=== PATIENT | female | born 1995 | race Caucasian/White ===

== ENCOUNTER 2017-12-24 17:15 | Emergency (ER) | payer OTHER ==
[2017-12-24 17:31] VITALS: BMI 27.3
[2017-12-24 17:58] VITALS: BP 136/89; PULSE 60; TEMP 98.7
--- NOTE | 2017-12-24 19:14 | PDOC ---
History of Present Illness - History of Present Illness Initial Comments: 12/24/17 19:50 The patient is a 22 year old female, with no significant past medical history, who presents to the emergency department with left elbow/forearm pain s/p trip and fall. Patient states that she fell on her left side injuring her left elbow , shoulder, and knee. She came into today with a sling. She rates her current elbow pain 2-4/10. She denies hitting her head. She denies LOC. She denies recent fevers, chills, headache or dizziness. She denies recent nausea, vomit, diarrhea or constipation. She denies recent dysuria, frequency, urgency or hematuria. She denies recent chest pain or shortness of breath. Allergies: NKA Past surgical history: None reported. Social history: Current everyday smoker. Denies EtOH use and recreational drug use. ROS General: No fevers or chills, no weakness, no weight loss HEENT: No change in vision. No sore throat, No ear pain Cardiovascular: No chest pain or shortness of breath Respiratory:No cough, or wheezing. Gastrointestinal: No nausea, vomiting, diarrhea or constipation, No rectal bleeding Genitourinary: No dysuria, hematuria, or frequency Musculoskeletal: +left elbow and forearm pain. No joint pain or swelling Neurologic: No headache, vertigo, dizziness or loss of consciousness Psychiatric: No depression Skin: + left elbow bruise. No rashes. Endocrine: No increased thirst or abnormal weight change Allergic: No skin or latex allergy All other systems reviewed and normal PE GENERAL: The patient is awake, alert, and fully oriented, in no acute distress. HEAD: Normal with no signs of trauma. EYES: Pupils equal, round and reactive to light, extraocular movements intact, sclera anicteric, conjunctiva clear. EXTREMITIES: Tenderness over elbow and proximal forearm. No obvious deformities. Normal distal pulses. Left elbow contusion on the palmar side of proximal forearm.Decreased sensation in area of contusion - as per pt NEUROLOGICAL: Normal speech, normal gait. PSYCH: Normal mood, normal affect. SKIN: Warm, Dry, normal turgor, no rashes or lesions noted. <Mee Vasquez - Last Filed: 12/24/17 19:50> - General History Source: Patient Exam Limitations: No Limitations - History of Present Illness Initial Comments: A portion of this note was documented by scribe services under my direction. I have reviewed the details of the note, within reason, and agree with the documentation. The case summary and management plan written by me. 12/24/17 20:28 X-ray shows a displaced olecranon fracture Procedure note OCL splint posterior elbow placed neurovascular exam post splint application intact patient's I will put in a sling Assessment and plan: This is a 22-year-old female who slipped and fell at work injuring her left elbow. Patient's elbow does have a displaced olecranon fracture. Patient was splinted and put in a sling. Patient was given Percocet for pain Dr. Rodney was contacted and said Dr. Middleton will be in the office at 10 :00 tomorrow morning and the patient should just show up at the office at 10 AM. <Jovany Cannon I - Last Filed: 12/24/17 20:40> - General Chief Complaint: Pain, Acute Stated Complaint: LEFT HIP/KNEE/ELBOW PAIN Time Seen by Provider: 12/24/17 19:07 Past History <Mee Vasquez - Last Filed: 12/24/17 19:50> - Past Medical History COPD: No - Suicide/Smoking/Psychosocial Hx Smoking History: Current every day smoker Number of Cigarettes Smoked Daily: 20 Information on smoking cessation initiated: Yes 'Breaking Loose' booklet given: 12/24/17 Hx Alcohol Use: Yes Drug/Substance Use Hx: Yes Substance Use Type: Alcohol, Cocaine <Jovany Cannon I - Last Filed: 12/24/17 20:40> - Past Medical History Allergies/Adverse Reactions: Allergies Allergy/AdvReac Type Severity Reaction Status Date / Time No Known Allergies Allergy Verified 12/24/17 17:16 Home Medications: Ambulatory Orders Oxycodone HCl/Acetaminophen [Percocet 5-325 mg Tablet] 1 - 2 tab PO Q4H #20 tablet MDD 8 12/24/17 Review of Systems - Review of Systems Comments:: 12/24/17 19:55 see HPI <Mee Vasquez - Last Filed: 12/24/17 19:50> *Physical Exam - Vital Signs Last Vital Signs Temp Pulse Resp BP Pulse Ox 98.7 F 60 15 136/89 99 12/24/17 17:55 12/24/17 17:55 12/24/17 17:55 12/24/17 17:55 12/24/17 17:55 - Physical Exam Comments: 12/24/17 19:55 see HPI <Mee Vasquez - Last Filed: 12/24/17 19:50> - Vital Signs Last Vital Signs Temp Pulse Resp BP Pulse Ox 98.7 F 60 15 136/89 99 12/24/17 17:55 12/24/17 17:55 12/24/17 17:55 12/24/17 17:55 12/24/17 17:55 <Jovany Cannon I - Last Filed: 12/24/17 20:40> ED Treatment Course - Medications Given in the ED: ED Medications Discontinued Medications Generic Name Dose Route Start Last Admin Trade Name Freq PRN Reason Stop Dose Admin Oxycodone/Acetaminophen 1 combo 12/24/17 19:16 12/24/17 19:32 Percocet 5/325 - PO 12/24/17 19:17 1 combo ONCE ONE Administration <Mee Vasquez - Last Filed: 12/24/17 19:50> *DC/Admit/Observation/Transfer - Attestations Scribe Attestion: 12/24/17 19:55 Documentation prepared by Mee Vasquez, acting as medical genetics director for Jovany Cannon MD. <Mee Vasquez - Last Filed: 12/24/17 19:50> - Discharge Dispostion Admit: No <Jovany Cannon I - Last Filed: 12/24/17 20:40> Diagnosis at time of Disposition: Fracture of left olecranon process - Discharge Dispostion Disposition: HOME Condition at time of disposition: Stable - Prescriptions Prescriptions: Oxycodone HCl/Acetaminophen [Percocet 5-325 mg Tablet] 1 - 2 tab PO Q4H #20 tablet MDD 8 - Patient Instructions Printed Discharge Instructions: How to Use a Sling Additional Instructions: Wear the sling while awake. take it off at night and prop the elbow up on a pillow. For the pain take Percocet one or 2 tablets every 4-6 hours as needed. Go to Dr. Middleton's office at 10 AM tomorrow morning [address] [facility] [address] [place], [place] Dr. Middleton is a elbow and hand specialist. Return to the emergency department immediately with ANY new, persistent or worsening symptoms. Continue any medications as previously prescribed by your physician. You should follow up with your primary doctor as soon as possible regarding today's emergency department visit. . Please make sure your doctor reviews the results of your emergency evaluation. Thank you for coming to the Emergency Department today for your care. It was a pleasure to see you today. Please note that your evaluation is INCOMPLETE until you follow-up with your doctor.
== END 2017-12-24 20:47 | disposition home or self-care (01) ==
LOC: FER 17:15
PROC: 2W39X1Z Immobilization of Left Upper Extremity using Splint (ICD-10-PCS; principal; 2017-12-24)
DX: S52.022A Displaced fracture of olecranon process without intraarticular extension of left ulna, initial encounter for closed fracture (principal); W18.39XA Other fall on same level, initial encounter; Y93.89 Activity, other specified; Y92.9 Unspecified place or not applicable
CPT/HCPCS: 73070-TC-LT; 99281-25